=== PATIENT | male | born 1950 | race Caucasian/White ===

== ENCOUNTER → 2020-07-05 | Outpatient (CLI) | payer MEDICARE ==
[~2020-07-05] MED LIST: ADVAIR 100/501 E1 INH; ALDACTONE50 MG PO; AMARYL2 MG PO; ASPIR-LOW81 MG PO; ATIVAN0.5 MG PO; ATIVAN1 MG PO; B12-METHYL1000 MCG PO; BACTROBAN2% TP; CIPRO250 MG PO; COLACE100 MG PO; CYMBALTA20 M1 PO; DULCOLAX5 MG PO; FISH OIL 10001000 MG PO; FOLIC ACID1 MG PO; FOLIC ACID5 MG/ML PO; GABAPENTIN300 M1 PO; GABAPENTIN600 MG PO; GLIMEPIRIDE1 MG PO; LASIX20 MG PO; LEVAQUIN750 MG PO; MOM30 ML PO; MOTRIN600 MG PO; MULTIPLE VITAMI1 CAP PO; NICODERM21 MG/24 H TD; NORCO 325 MG-101 TAB PO; POTASSIUM CHLO10 MEQ PO; PRILOSEC OTC20 MG PO; SIMVASTATIN10 MG PO; VANCOCIN HCL1 GM IV; VICO75300 PO; VITAMIN D31250 MC1 PO; ZYRTEC10 M3 PO
== END | disposition home or self-care (01) ==
LOC: COVID19 00:21
PROVIDERS: ATTEND Surgery
DX: Z01.812 Encounter for preprocedural laboratory examination (principal); Z20.828 Contact with and (suspected) exposure to other viral communicable diseases

== ENCOUNTER → 2020-07-11 | Day surgery (SDC) | payer MEDICARE ==
[~2020-07-11] VITALS: Ht 177.8 cm; Wt 75.3 kg
[2020-07-11] VITALS (7 sets, daily range): BP systolic 116–129; BP diastolic 65–81
== END | disposition home or self-care (01) ==
LOC: SDC 07-08 14:00
PROVIDERS: ATTEND Surgery
DX: D48.5 Neoplasm of uncertain behavior of skin (principal); C44.619 Basal cell carcinoma of skin of left upper limb, including shoulder; F41.9 Anxiety disorder, unspecified; F32.9 Major depressive disorder, single episode, unspecified; J44.9 Chronic obstructive pulmonary disease, unspecified; E11.9 Type 2 diabetes mellitus without complications; K21.9 Gastro-esophageal reflux disease without esophagitis; I25.2 Old myocardial infarction; Z98.890 Other specified postprocedural states; Z88.2 Allergy status to sulfonamides; Z79.899 Other long term (current) drug therapy; Z88.8 Allergy status to other drugs, medicaments and biological substances; Z87.891 Personal history of nicotine dependence; Z83.3 Family history of diabetes mellitus

== ENCOUNTER → 2020-07-24 | Outpatient (CLI) | payer MEDICARE | END | disposition home or self-care (01) | LOC: US 13:23 | PROVIDERS: ATTEND Internal Medicine | DX: I73.9 Peripheral vascular disease, unspecified (principal) ==

== ENCOUNTER → 2020-12-10 | Outpatient (CLI) | payer MEDICARE ==
[~2020-12-10] MED LIST changes: +AMARYL4 MG PO; +CARVEDILOL6.25 MG PO; +CLEOCIN HCL300 MG PO; +FLONASE ALLERG9.9 ML NAS; +HYDROCODONE-AC1 EAC2 PO; +LISINOPRIL2.5 MG PO; +LORAZEPAM1 MG PO; +NICODERM CQ1 EAC2 TD; +OMEPRAZOLE MAGN20 MG PO; +PERCOCET 5-3251 EACH PO; +PLAVIX75 M1 PO; +SIMVASTATIN20 MG PO; +TRULICITY0.75 MG/0. SC; +ZYRTEC10 M2 PO
== END ==
LOC: WOUNDCARE 01:31
PROVIDERS: ATTEND Surgery
DX: I87.311 Chronic venous hypertension (idiopathic) with ulcer of right lower extremity (principal); L97.811 Non-pressure chronic ulcer of other part of right lower leg limited to breakdown of skin; E11.622 Type 2 diabetes mellitus with other skin ulcer; L97.311 Non-pressure chronic ulcer of right ankle limited to breakdown of skin; E11.621 Type 2 diabetes mellitus with foot ulcer; L97.511 Non-pressure chronic ulcer of other part of right foot limited to breakdown of skin; E11.51 Type 2 diabetes mellitus with diabetic peripheral angiopathy without gangrene; F32.9 Major depressive disorder, single episode, unspecified; F17.290 Nicotine dependence, other tobacco product, uncomplicated

== ENCOUNTER 2020-12-16 13:32 | Inpatient (IN) | payer MEDICARE ==
[~2020-12-16] VITALS: Ht 177.8 cm; Wt 67.6 kg
[~2020-12-16 13:32] MED LIST changes: -AMARYL4 MG PO; -CARVEDILOL6.25 MG PO; -CLEOCIN HCL300 MG PO; -FLONASE ALLERG9.9 ML NAS; -HYDROCODONE-AC1 EAC2 PO; -LISINOPRIL2.5 MG PO; -LORAZEPAM1 MG PO; -NICODERM CQ1 EAC2 TD; -OMEPRAZOLE MAGN20 MG PO; -PERCOCET 5-3251 EACH PO; -PLAVIX75 M1 PO; -SIMVASTATIN20 MG PO; -TRULICITY0.75 MG/0. SC; -ZYRTEC10 M2 PO
[2020-12-16 13:39] VITALS: BP 150/67
[2020-12-16 14:00] VITALS: BP 155/64
[2020-12-16 14:15] LABS: BASO % 0.5 % (0.0-1.0); EOS # 0.5 10*3/uL (0.0-0.4); EOS % 5.7 % (1.0-4.0); HEMATOCRIT 40.2 % (42.0-52.0); LYMPH # 1.7 10*3/uL (1.3-4.4); LYMPH % 20.3 % (27.0-41.0); MEAN CELL VOLUME 97.6 fl (80.0-94.0); MEAN CORPUSCULAR HGB 31.6 pg (27.0-31.0); MEAN CORPUSCULAR HGB CONC 32.3 g/dl (33.0-37.0); MEAN PLATELET VOLUME 9.7 fl (9.6-12.3); MONO # 0.7 10*3/uL (0.1-1.0); MONO % 7.7 % (3.0-9.0); NEUT # 5.5 10*3/uL (2.3-7.9); NEUT % 65.1 % (47.0-73.0); PLATELET COUNT AUTOMATED 233 10*3/uL (130-400); RED BLOOD COUNT 4.12 10*6/uL (4.50-5.90); RED CELL DISTRI WIDTH 13.2 % (0-14.5); WHITE BLOOD COUNT 8.4 10*3/uL (4.8-10.8)
[2020-12-16] MEDS ORDERED: PLAVIX75 M1 PO (14:26)
[2020-12-16] MEDS ORDERED: TRULICITY0.75 MG/0. SC (14:27)
[2020-12-16] MEDS ORDERED: CARVEDILOL6.25 MG PO (14:27)
[2020-12-16 14:30] LABS: ALBUMIN 3.4 gm/dl (3.1-4.5); ALKALINE PHOSPHATASE 78 U/L (45-117); BUN 19 mg/dl (7-24); CHLORIDE 106 mmol/L (98-107); CREATININE 0.93 mg/dL (0.70-1.30); POTASSIUM 4.4 mmol/L (3.5-5.1); SGOT/AST 7 IU/L (3-35); SGPT/ALT 15 U/L (12-78); SODIUM 138 mmol/L (136-145); TOTAL PROTEIN 6.8 gm/dL (6.4-8.2)
[2020-12-16 15:00] VITALS: BP 142/58
[2020-12-16 15:51] LABS: BILIRUBIN Negative (Negative); BLOOD 2+ (Negative); CLARITY Clear (Clear); COLOR Yellow (Yellow); GLUCOSE Negative (Negative); KETONE Negative (Negative); LEUKO ESTERASE Negative (Negative); NITRITE Negative (Negative); SPECIFIC GRAVITY <= 1.005 (1.001-1.030); UROBILINOGEN 0.2 E.U./dl (0.0-1.0)
[2020-12-16 16:00] VITALS: BP 136/64
[2020-12-16 20:00] VITALS: BP 118/54
[2020-12-16] MEDS ORDERED: FLONASE ALLERG9.9 ML NAS (21:32)
[2020-12-16] MEDS ORDERED: NICODERM CQ1 EAC2 TD (21:32)
[2020-12-16] MEDS ORDERED: HYDROCODONE-AC1 EAC2 PO (22:55)
[2020-12-16] MEDS ORDERED: ZYRTEC10 M2 PO (22:56)
[2020-12-16] MEDS ORDERED: LISINOPRIL2.5 MG PO (22:58)
[2020-12-16] MEDS ORDERED: LORAZEPAM1 MG PO (23:01)
[2020-12-16] MEDS ORDERED: AMARYL4 MG PO (23:02)
[2020-12-16] MEDS ORDERED: OMEPRAZOLE MAGN20 MG PO (23:03)
[2020-12-16] MEDS ORDERED: SIMVASTATIN20 MG PO (23:05)
[2020-12-17] VITALS: BP 100/50
[2020-12-17 08:00] VITALS: BP 100/50
[2020-12-17 16:00] VITALS: BP 138/57
[2020-12-17 20:00] VITALS: BP 126/64
[2020-12-18] VITALS: BP 109/43
[2020-12-18] MEDS ORDERED: CLEOCIN HCL300 MG PO ×2 (08:48)
[2021-02-13] MEDS ORDERED: PERCOCET 5-3251 EACH PO (12:59)
== END 2020-12-18 09:43 | disposition home or self-care (01) | DRG 301 ==
LOC: ED 13:32 → 4E 14:18 → EDHOLD 14:18 → 4E 14:43
PROVIDERS: Nurse Practitioner; ADMIT Internal Medicine; ATTEND Internal Medicine
DX: I73.9 Peripheral vascular disease, unspecified (principal); E11.51 Type 2 diabetes mellitus with diabetic peripheral angiopathy without gangrene; L97.519 Non-pressure chronic ulcer of other part of right foot with unspecified severity; E11.621 Type 2 diabetes mellitus with foot ulcer; I99.8 Other disorder of circulatory system; F41.1 Generalized anxiety disorder; G89.29 Other chronic pain; F17.210 Nicotine dependence, cigarettes, uncomplicated; Z88.2 Allergy status to sulfonamides

== ENCOUNTER → 2021-01-06 | Outpatient (CLI) | payer MEDICARE ==
[~2021-01-06] MED LIST changes: +AMARYL4 MG PO; +CARVEDILOL6.25 MG PO; +CLEOCIN HCL300 MG PO; +FLONASE ALLERG9.9 ML NAS; +HYDROCODONE-AC1 EAC2 PO; +LISINOPRIL2.5 MG PO; +LORAZEPAM1 MG PO; +NICODERM CQ1 EAC2 TD; +OMEPRAZOLE MAGN20 MG PO; +PERCOCET 5-3251 EACH PO; +PLAVIX75 M1 PO; +SIMVASTATIN20 MG PO; +TRULICITY0.75 MG/0. SC; +ZYRTEC10 M2 PO
== END ==
LOC: WOUNDCARE 11:40
PROVIDERS: ATTEND Nurse Practitioner
DX: I87.311 Chronic venous hypertension (idiopathic) with ulcer of right lower extremity (principal); L97.812 Non-pressure chronic ulcer of other part of right lower leg with fat layer exposed; E11.622 Type 2 diabetes mellitus with other skin ulcer; E11.51 Type 2 diabetes mellitus with diabetic peripheral angiopathy without gangrene; F32.9 Major depressive disorder, single episode, unspecified; F17.290 Nicotine dependence, other tobacco product, uncomplicated

== ENCOUNTER → 2021-01-21 | Outpatient (CLI) | payer MEDICARE | LOC: WOUNDCARE 05:51 | PROVIDERS: ATTEND Nurse Practitioner | DX: I87.311 Chronic venous hypertension (idiopathic) with ulcer of right lower extremity (principal); L97.812 Non-pressure chronic ulcer of other part of right lower leg with fat layer exposed; E11.622 Type 2 diabetes mellitus with other skin ulcer; E11.51 Type 2 diabetes mellitus with diabetic peripheral angiopathy without gangrene; F32.9 Major depressive disorder, single episode, unspecified; F17.290 Nicotine dependence, other tobacco product, uncomplicated ==

== ENCOUNTER → 2021-01-28 | Outpatient (CLI) | payer MEDICARE | LOC: WOUNDCARE 00:37 | PROVIDERS: ATTEND Surgery | DX: I87.311 Chronic venous hypertension (idiopathic) with ulcer of right lower extremity (principal); L97.812 Non-pressure chronic ulcer of other part of right lower leg with fat layer exposed; E11.622 Type 2 diabetes mellitus with other skin ulcer; E11.51 Type 2 diabetes mellitus with diabetic peripheral angiopathy without gangrene; F32.9 Major depressive disorder, single episode, unspecified; F17.290 Nicotine dependence, other tobacco product, uncomplicated ==

== ENCOUNTER → 2021-02-13 | Day surgery (SDC) | payer MEDICARE ==
[~2021-02-13] VITALS: Ht 177.8 cm; Wt 68.0 kg
[2021-02-13 10:45] VITALS: BP 114/72
[2021-02-13 12:52] VITALS: BP 113/80
[2021-02-13 13:07] VITALS: BP 117/58
[2021-02-13 13:21] VITALS: BP 114/60
== END | disposition home or self-care (01) ==
LOC: SDC 02-11 09:30
PROVIDERS: ATTEND Surgery
DX: I87.311 Chronic venous hypertension (idiopathic) with ulcer of right lower extremity (principal); L97.818 Non-pressure chronic ulcer of other part of right lower leg with other specified severity; R22.9 Localized swelling, mass and lump, unspecified; I73.9 Peripheral vascular disease, unspecified; K21.9 Gastro-esophageal reflux disease without esophagitis; E11.40 Type 2 diabetes mellitus with diabetic neuropathy, unspecified; I25.10 Atherosclerotic heart disease of native coronary artery without angina pectoris; I25.2 Old myocardial infarction; J44.9 Chronic obstructive pulmonary disease, unspecified; F17.210 Nicotine dependence, cigarettes, uncomplicated; F41.9 Anxiety disorder, unspecified; F32.9 Major depressive disorder, single episode, unspecified; Z79.899 Other long term (current) drug therapy

== ENCOUNTER → 2021-02-25 | Outpatient (CLI) | payer MEDICARE | LOC: WOUNDCARE 01:18 | PROVIDERS: ATTEND Nurse Practitioner | DX: I87.311 Chronic venous hypertension (idiopathic) with ulcer of right lower extremity (principal); E11.622 Type 2 diabetes mellitus with other skin ulcer; L97.812 Non-pressure chronic ulcer of other part of right lower leg with fat layer exposed; E11.51 Type 2 diabetes mellitus with diabetic peripheral angiopathy without gangrene; R22.41 Localized swelling, mass and lump, right lower limb; F32.9 Major depressive disorder, single episode, unspecified; F43.10 Post-traumatic stress disorder, unspecified; F17.210 Nicotine dependence, cigarettes, uncomplicated ==

== ENCOUNTER → 2021-03-04 | Outpatient (CLI) | payer MEDICARE | LOC: WOUNDCARE 00:34 | PROVIDERS: ATTEND Nurse Practitioner | DX: I87.311 Chronic venous hypertension (idiopathic) with ulcer of right lower extremity (principal); E11.622 Type 2 diabetes mellitus with other skin ulcer; L97.812 Non-pressure chronic ulcer of other part of right lower leg with fat layer exposed; E11.51 Type 2 diabetes mellitus with diabetic peripheral angiopathy without gangrene; R22.41 Localized swelling, mass and lump, right lower limb; F32.9 Major depressive disorder, single episode, unspecified; F43.10 Post-traumatic stress disorder, unspecified; F17.210 Nicotine dependence, cigarettes, uncomplicated ==

== ENCOUNTER → 2021-03-11 | Outpatient (CLI) | payer MEDICARE | LOC: WOUNDCARE 00:25 | PROVIDERS: ATTEND Nurse Practitioner | DX: I87.311 Chronic venous hypertension (idiopathic) with ulcer of right lower extremity (principal); E11.622 Type 2 diabetes mellitus with other skin ulcer; L97.812 Non-pressure chronic ulcer of other part of right lower leg with fat layer exposed; E11.51 Type 2 diabetes mellitus with diabetic peripheral angiopathy without gangrene; R22.41 Localized swelling, mass and lump, right lower limb; F32.9 Major depressive disorder, single episode, unspecified; F43.10 Post-traumatic stress disorder, unspecified; F17.210 Nicotine dependence, cigarettes, uncomplicated ==

== ENCOUNTER → 2021-03-20 | Outpatient (CLI) | payer MEDICARE | LOC: WOUNDCARE 03-18 03:51 | PROVIDERS: ATTEND Nurse Practitioner | DX: I87.311 Chronic venous hypertension (idiopathic) with ulcer of right lower extremity (principal); E11.622 Type 2 diabetes mellitus with other skin ulcer; L97.812 Non-pressure chronic ulcer of other part of right lower leg with fat layer exposed; E11.51 Type 2 diabetes mellitus with diabetic peripheral angiopathy without gangrene; R22.41 Localized swelling, mass and lump, right lower limb; F32.9 Major depressive disorder, single episode, unspecified; F43.10 Post-traumatic stress disorder, unspecified; F17.210 Nicotine dependence, cigarettes, uncomplicated ==

== ENCOUNTER → 2021-03-25 | Outpatient (CLI) | payer MEDICARE | LOC: WOUNDCARE 01:01 | PROVIDERS: ATTEND Nurse Practitioner | DX: I87.311 Chronic venous hypertension (idiopathic) with ulcer of right lower extremity (principal); E11.622 Type 2 diabetes mellitus with other skin ulcer; L97.812 Non-pressure chronic ulcer of other part of right lower leg with fat layer exposed; E11.51 Type 2 diabetes mellitus with diabetic peripheral angiopathy without gangrene; R22.41 Localized swelling, mass and lump, right lower limb; F32.9 Major depressive disorder, single episode, unspecified; F43.10 Post-traumatic stress disorder, unspecified; F17.210 Nicotine dependence, cigarettes, uncomplicated ==

== ENCOUNTER → 2021-04-01 | Outpatient (CLI) | payer MEDICARE | LOC: WOUNDCARE 01:21 | PROVIDERS: ATTEND Nurse Practitioner | DX: I87.311 Chronic venous hypertension (idiopathic) with ulcer of right lower extremity (principal); E11.622 Type 2 diabetes mellitus with other skin ulcer; L97.812 Non-pressure chronic ulcer of other part of right lower leg with fat layer exposed; E11.51 Type 2 diabetes mellitus with diabetic peripheral angiopathy without gangrene; R22.41 Localized swelling, mass and lump, right lower limb; F32.9 Major depressive disorder, single episode, unspecified; F43.10 Post-traumatic stress disorder, unspecified; F17.210 Nicotine dependence, cigarettes, uncomplicated ==

== ENCOUNTER → 2021-04-08 | Outpatient (CLI) | payer MEDICARE | LOC: WOUNDCARE 00:56 | PROVIDERS: ATTEND Surgery | DX: I87.311 Chronic venous hypertension (idiopathic) with ulcer of right lower extremity (principal); E11.622 Type 2 diabetes mellitus with other skin ulcer; L97.812 Non-pressure chronic ulcer of other part of right lower leg with fat layer exposed; E11.51 Type 2 diabetes mellitus with diabetic peripheral angiopathy without gangrene; R22.41 Localized swelling, mass and lump, right lower limb; F32.9 Major depressive disorder, single episode, unspecified; F43.10 Post-traumatic stress disorder, unspecified; F17.210 Nicotine dependence, cigarettes, uncomplicated ==

== ENCOUNTER → 2021-04-15 | Outpatient (CLI) | payer MEDICARE | LOC: WOUNDCARE 01:04 | PROVIDERS: ATTEND Nurse Practitioner | DX: I87.311 Chronic venous hypertension (idiopathic) with ulcer of right lower extremity (principal); E11.622 Type 2 diabetes mellitus with other skin ulcer; L97.812 Non-pressure chronic ulcer of other part of right lower leg with fat layer exposed; E11.51 Type 2 diabetes mellitus with diabetic peripheral angiopathy without gangrene; R22.41 Localized swelling, mass and lump, right lower limb; F32.9 Major depressive disorder, single episode, unspecified; F43.10 Post-traumatic stress disorder, unspecified; F17.210 Nicotine dependence, cigarettes, uncomplicated ==

== ENCOUNTER → 2021-04-22 | Outpatient (CLI) | payer MEDICARE | LOC: WOUNDCARE 01:45 | PROVIDERS: ATTEND Nurse Practitioner | DX: I87.311 Chronic venous hypertension (idiopathic) with ulcer of right lower extremity (principal); E11.622 Type 2 diabetes mellitus with other skin ulcer; L97.812 Non-pressure chronic ulcer of other part of right lower leg with fat layer exposed; E11.51 Type 2 diabetes mellitus with diabetic peripheral angiopathy without gangrene; R22.41 Localized swelling, mass and lump, right lower limb; F32.9 Major depressive disorder, single episode, unspecified; F43.10 Post-traumatic stress disorder, unspecified; F17.210 Nicotine dependence, cigarettes, uncomplicated ==

== ENCOUNTER → 2021-04-29 | Outpatient (CLI) | payer MEDICARE | LOC: WOUNDCARE 01:29 | PROVIDERS: ATTEND Surgery | DX: I87.311 Chronic venous hypertension (idiopathic) with ulcer of right lower extremity (principal); E11.622 Type 2 diabetes mellitus with other skin ulcer; L97.812 Non-pressure chronic ulcer of other part of right lower leg with fat layer exposed; E11.51 Type 2 diabetes mellitus with diabetic peripheral angiopathy without gangrene; R22.41 Localized swelling, mass and lump, right lower limb; F32.9 Major depressive disorder, single episode, unspecified; F43.10 Post-traumatic stress disorder, unspecified; F17.210 Nicotine dependence, cigarettes, uncomplicated ==

== ENCOUNTER → 2021-05-06 | Outpatient (CLI) | payer MEDICARE | LOC: WOUNDCARE 13:28 | PROVIDERS: ATTEND Nurse Practitioner | DX: I87.311 Chronic venous hypertension (idiopathic) with ulcer of right lower extremity (principal); E11.622 Type 2 diabetes mellitus with other skin ulcer; L97.812 Non-pressure chronic ulcer of other part of right lower leg with fat layer exposed; E11.51 Type 2 diabetes mellitus with diabetic peripheral angiopathy without gangrene; R22.41 Localized swelling, mass and lump, right lower limb; F32.9 Major depressive disorder, single episode, unspecified; F43.10 Post-traumatic stress disorder, unspecified; F17.210 Nicotine dependence, cigarettes, uncomplicated ==

== ENCOUNTER → 2021-05-13 | Outpatient (CLI) | payer MEDICARE | LOC: WOUNDCARE 01:20 | PROVIDERS: ATTEND Nurse Practitioner | DX: I87.311 Chronic venous hypertension (idiopathic) with ulcer of right lower extremity (principal); E11.622 Type 2 diabetes mellitus with other skin ulcer; L97.812 Non-pressure chronic ulcer of other part of right lower leg with fat layer exposed; E11.51 Type 2 diabetes mellitus with diabetic peripheral angiopathy without gangrene; R22.41 Localized swelling, mass and lump, right lower limb; F32.9 Major depressive disorder, single episode, unspecified; F43.10 Post-traumatic stress disorder, unspecified; F17.210 Nicotine dependence, cigarettes, uncomplicated ==

== ENCOUNTER → 2021-05-20 | Outpatient (CLI) | payer MEDICARE | LOC: WOUNDCARE 01:15 | PROVIDERS: ATTEND Surgery | DX: I87.311 Chronic venous hypertension (idiopathic) with ulcer of right lower extremity (principal); E11.622 Type 2 diabetes mellitus with other skin ulcer; L97.812 Non-pressure chronic ulcer of other part of right lower leg with fat layer exposed; E11.51 Type 2 diabetes mellitus with diabetic peripheral angiopathy without gangrene; R22.41 Localized swelling, mass and lump, right lower limb; F32.9 Major depressive disorder, single episode, unspecified; F43.10 Post-traumatic stress disorder, unspecified; F17.210 Nicotine dependence, cigarettes, uncomplicated ==

== ENCOUNTER → 2021-05-27 | Outpatient (CLI) | payer MEDICARE | LOC: WOUNDCARE 02:43 | PROVIDERS: ATTEND Surgery | DX: I87.311 Chronic venous hypertension (idiopathic) with ulcer of right lower extremity (principal); E11.622 Type 2 diabetes mellitus with other skin ulcer; L97.812 Non-pressure chronic ulcer of other part of right lower leg with fat layer exposed; E11.51 Type 2 diabetes mellitus with diabetic peripheral angiopathy without gangrene; R22.41 Localized swelling, mass and lump, right lower limb; F32.9 Major depressive disorder, single episode, unspecified; F43.10 Post-traumatic stress disorder, unspecified; F17.210 Nicotine dependence, cigarettes, uncomplicated ==

== ENCOUNTER → 2021-06-03 | Outpatient (CLI) | payer MEDICARE | LOC: WOUNDCARE 01:43 | PROVIDERS: ATTEND Surgery | DX: I87.311 Chronic venous hypertension (idiopathic) with ulcer of right lower extremity (principal); E11.622 Type 2 diabetes mellitus with other skin ulcer; L97.812 Non-pressure chronic ulcer of other part of right lower leg with fat layer exposed; E11.51 Type 2 diabetes mellitus with diabetic peripheral angiopathy without gangrene; R22.41 Localized swelling, mass and lump, right lower limb; F32.9 Major depressive disorder, single episode, unspecified; F43.10 Post-traumatic stress disorder, unspecified; F17.210 Nicotine dependence, cigarettes, uncomplicated ==

== ENCOUNTER → 2021-06-10 | Outpatient (CLI) | payer MEDICARE | LOC: WOUNDCARE 01:30 | PROVIDERS: ATTEND Surgery | DX: I87.311 Chronic venous hypertension (idiopathic) with ulcer of right lower extremity (principal); E11.622 Type 2 diabetes mellitus with other skin ulcer; L97.812 Non-pressure chronic ulcer of other part of right lower leg with fat layer exposed; E11.51 Type 2 diabetes mellitus with diabetic peripheral angiopathy without gangrene; R22.41 Localized swelling, mass and lump, right lower limb; F32.9 Major depressive disorder, single episode, unspecified; F43.10 Post-traumatic stress disorder, unspecified; F17.210 Nicotine dependence, cigarettes, uncomplicated ==

== ENCOUNTER → 2021-06-17 | Outpatient (CLI) | payer MEDICARE | LOC: WOUNDCARE 01:01 | PROVIDERS: ATTEND Surgery | DX: I87.311 Chronic venous hypertension (idiopathic) with ulcer of right lower extremity (principal); E11.622 Type 2 diabetes mellitus with other skin ulcer; L97.812 Non-pressure chronic ulcer of other part of right lower leg with fat layer exposed; E11.51 Type 2 diabetes mellitus with diabetic peripheral angiopathy without gangrene; R22.41 Localized swelling, mass and lump, right lower limb; F32.9 Major depressive disorder, single episode, unspecified; F43.10 Post-traumatic stress disorder, unspecified; F17.210 Nicotine dependence, cigarettes, uncomplicated ==

== ENCOUNTER → 2021-06-24 | Outpatient (CLI) | payer MEDICARE | LOC: WOUNDCARE 01:51 | PROVIDERS: ATTEND Surgery | DX: I87.311 Chronic venous hypertension (idiopathic) with ulcer of right lower extremity (principal); E11.622 Type 2 diabetes mellitus with other skin ulcer; L97.812 Non-pressure chronic ulcer of other part of right lower leg with fat layer exposed; E11.51 Type 2 diabetes mellitus with diabetic peripheral angiopathy without gangrene; R22.41 Localized swelling, mass and lump, right lower limb; F32.9 Major depressive disorder, single episode, unspecified; F43.10 Post-traumatic stress disorder, unspecified; F17.210 Nicotine dependence, cigarettes, uncomplicated ==

== ENCOUNTER → 2021-07-01 | Outpatient (CLI) | payer MEDICARE | LOC: WOUNDCARE 01:20 | PROVIDERS: ATTEND Surgery | DX: I87.311 Chronic venous hypertension (idiopathic) with ulcer of right lower extremity (principal); E11.622 Type 2 diabetes mellitus with other skin ulcer; L97.812 Non-pressure chronic ulcer of other part of right lower leg with fat layer exposed; E11.51 Type 2 diabetes mellitus with diabetic peripheral angiopathy without gangrene; R22.41 Localized swelling, mass and lump, right lower limb; F32.9 Major depressive disorder, single episode, unspecified; F43.10 Post-traumatic stress disorder, unspecified; F17.210 Nicotine dependence, cigarettes, uncomplicated ==

== ENCOUNTER → 2021-07-08 | Outpatient (CLI) | payer MEDICARE | LOC: WOUNDCARE 01:39 | PROVIDERS: ATTEND Nurse Practitioner | DX: I87.311 Chronic venous hypertension (idiopathic) with ulcer of right lower extremity (principal); E11.622 Type 2 diabetes mellitus with other skin ulcer; L97.812 Non-pressure chronic ulcer of other part of right lower leg with fat layer exposed; E11.51 Type 2 diabetes mellitus with diabetic peripheral angiopathy without gangrene; R22.41 Localized swelling, mass and lump, right lower limb; F32.9 Major depressive disorder, single episode, unspecified; F43.10 Post-traumatic stress disorder, unspecified; F17.210 Nicotine dependence, cigarettes, uncomplicated ==

== ENCOUNTER → 2021-07-15 | Outpatient (CLI) | payer MEDICARE | LOC: WOUNDCARE 00:38 | PROVIDERS: ATTEND Surgery | DX: I87.311 Chronic venous hypertension (idiopathic) with ulcer of right lower extremity (principal); E11.622 Type 2 diabetes mellitus with other skin ulcer; L97.812 Non-pressure chronic ulcer of other part of right lower leg with fat layer exposed; E11.51 Type 2 diabetes mellitus with diabetic peripheral angiopathy without gangrene; R22.41 Localized swelling, mass and lump, right lower limb; F32.9 Major depressive disorder, single episode, unspecified; F43.10 Post-traumatic stress disorder, unspecified; F17.210 Nicotine dependence, cigarettes, uncomplicated ==

== ENCOUNTER → 2021-07-22 | Outpatient (CLI) | payer MEDICARE | LOC: WOUNDCARE 03:24 | PROVIDERS: ATTEND Surgery | DX: I87.311 Chronic venous hypertension (idiopathic) with ulcer of right lower extremity (principal); E11.622 Type 2 diabetes mellitus with other skin ulcer; L97.812 Non-pressure chronic ulcer of other part of right lower leg with fat layer exposed; E11.51 Type 2 diabetes mellitus with diabetic peripheral angiopathy without gangrene; R22.41 Localized swelling, mass and lump, right lower limb; F32.9 Major depressive disorder, single episode, unspecified; F43.10 Post-traumatic stress disorder, unspecified; F17.290 Nicotine dependence, other tobacco product, uncomplicated ==

== ENCOUNTER → 2021-07-29 | Outpatient (CLI) | payer MEDICARE | LOC: WOUNDCARE 00:39 | PROVIDERS: ATTEND Surgery | DX: I87.311 Chronic venous hypertension (idiopathic) with ulcer of right lower extremity (principal); E11.622 Type 2 diabetes mellitus with other skin ulcer; L97.812 Non-pressure chronic ulcer of other part of right lower leg with fat layer exposed; E11.51 Type 2 diabetes mellitus with diabetic peripheral angiopathy without gangrene; R22.41 Localized swelling, mass and lump, right lower limb; F32.9 Major depressive disorder, single episode, unspecified; F43.10 Post-traumatic stress disorder, unspecified; F17.290 Nicotine dependence, other tobacco product, uncomplicated ==

== ENCOUNTER → 2021-08-05 | Outpatient (CLI) | payer MEDICARE | LOC: WOUNDCARE 01:05 | PROVIDERS: ATTEND Surgery | DX: I87.311 Chronic venous hypertension (idiopathic) with ulcer of right lower extremity (principal); E11.622 Type 2 diabetes mellitus with other skin ulcer; L97.812 Non-pressure chronic ulcer of other part of right lower leg with fat layer exposed; E11.51 Type 2 diabetes mellitus with diabetic peripheral angiopathy without gangrene; R22.41 Localized swelling, mass and lump, right lower limb; F32.9 Major depressive disorder, single episode, unspecified; F43.10 Post-traumatic stress disorder, unspecified; F17.290 Nicotine dependence, other tobacco product, uncomplicated ==

== ENCOUNTER → 2021-08-12 | Outpatient (CLI) | payer MEDICARE | LOC: WOUNDCARE 01:27 | PROVIDERS: ATTEND Surgery | DX: I87.311 Chronic venous hypertension (idiopathic) with ulcer of right lower extremity (principal); L97.812 Non-pressure chronic ulcer of other part of right lower leg with fat layer exposed; E11.622 Type 2 diabetes mellitus with other skin ulcer; E11.51 Type 2 diabetes mellitus with diabetic peripheral angiopathy without gangrene; R22.41 Localized swelling, mass and lump, right lower limb; F32.9 Major depressive disorder, single episode, unspecified; F43.10 Post-traumatic stress disorder, unspecified; F17.290 Nicotine dependence, other tobacco product, uncomplicated ==

== ENCOUNTER → 2021-08-19 | Outpatient (CLI) | payer MEDICARE | LOC: WOUNDCARE 01:11 | PROVIDERS: ATTEND Surgery | DX: I87.311 Chronic venous hypertension (idiopathic) with ulcer of right lower extremity (principal); L97.812 Non-pressure chronic ulcer of other part of right lower leg with fat layer exposed; E11.622 Type 2 diabetes mellitus with other skin ulcer; E11.51 Type 2 diabetes mellitus with diabetic peripheral angiopathy without gangrene; R22.41 Localized swelling, mass and lump, right lower limb; F32.9 Major depressive disorder, single episode, unspecified; F43.10 Post-traumatic stress disorder, unspecified; F17.290 Nicotine dependence, other tobacco product, uncomplicated ==

== ENCOUNTER → 2021-08-26 | Outpatient (CLI) | payer MEDICARE | LOC: WOUNDCARE 00:45 | PROVIDERS: ATTEND Surgery | DX: L97.311 Non-pressure chronic ulcer of right ankle limited to breakdown of skin (principal); L97.812 Non-pressure chronic ulcer of other part of right lower leg with fat layer exposed; E11.622 Type 2 diabetes mellitus with other skin ulcer; E11.51 Type 2 diabetes mellitus with diabetic peripheral angiopathy without gangrene; R22.41 Localized swelling, mass and lump, right lower limb; F32.9 Major depressive disorder, single episode, unspecified; F43.10 Post-traumatic stress disorder, unspecified; F17.290 Nicotine dependence, other tobacco product, uncomplicated ==

== ENCOUNTER → 2021-09-02 | Outpatient (CLI) | payer MEDICARE | LOC: WOUNDCARE 00:39 | PROVIDERS: ATTEND Surgery | DX: I87.311 Chronic venous hypertension (idiopathic) with ulcer of right lower extremity (principal); L97.812 Non-pressure chronic ulcer of other part of right lower leg with fat layer exposed; E11.622 Type 2 diabetes mellitus with other skin ulcer; E11.51 Type 2 diabetes mellitus with diabetic peripheral angiopathy without gangrene; R22.41 Localized swelling, mass and lump, right lower limb; I73.9 Peripheral vascular disease, unspecified; F32.9 Major depressive disorder, single episode, unspecified; F43.10 Post-traumatic stress disorder, unspecified; F17.290 Nicotine dependence, other tobacco product, uncomplicated ==

== ENCOUNTER → 2021-09-09 | Outpatient (CLI) | payer MEDICARE | LOC: WOUNDCARE 01:30 | PROVIDERS: ATTEND Surgery | DX: I87.311 Chronic venous hypertension (idiopathic) with ulcer of right lower extremity (principal); E11.622 Type 2 diabetes mellitus with other skin ulcer; L97.812 Non-pressure chronic ulcer of other part of right lower leg with fat layer exposed; I73.9 Peripheral vascular disease, unspecified; R22.41 Localized swelling, mass and lump, right lower limb; E11.51 Type 2 diabetes mellitus with diabetic peripheral angiopathy without gangrene; F32.9 Major depressive disorder, single episode, unspecified; F43.10 Post-traumatic stress disorder, unspecified; F17.290 Nicotine dependence, other tobacco product, uncomplicated ==

== ENCOUNTER → 2021-09-16 | Outpatient (CLI) | payer MEDICARE | LOC: WOUNDCARE 01:37 | PROVIDERS: ATTEND Surgery | DX: I87.311 Chronic venous hypertension (idiopathic) with ulcer of right lower extremity (principal); E11.622 Type 2 diabetes mellitus with other skin ulcer; L97.812 Non-pressure chronic ulcer of other part of right lower leg with fat layer exposed; E11.51 Type 2 diabetes mellitus with diabetic peripheral angiopathy without gangrene; R22.41 Localized swelling, mass and lump, right lower limb; F32.9 Major depressive disorder, single episode, unspecified; F43.10 Post-traumatic stress disorder, unspecified; F17.290 Nicotine dependence, other tobacco product, uncomplicated ==

== ENCOUNTER → 2021-09-23 | Outpatient (CLI) | payer MEDICARE | LOC: WOUNDCARE 01:50 | PROVIDERS: ATTEND Surgery | DX: I87.311 Chronic venous hypertension (idiopathic) with ulcer of right lower extremity (principal); E11.622 Type 2 diabetes mellitus with other skin ulcer; L97.812 Non-pressure chronic ulcer of other part of right lower leg with fat layer exposed; E11.51 Type 2 diabetes mellitus with diabetic peripheral angiopathy without gangrene; R22.41 Localized swelling, mass and lump, right lower limb; F32.9 Major depressive disorder, single episode, unspecified; F43.10 Post-traumatic stress disorder, unspecified; F17.290 Nicotine dependence, other tobacco product, uncomplicated ==

== ENCOUNTER → 2021-10-07 | Outpatient (CLI) | payer MEDICARE | LOC: WOUNDCARE 00:47 | PROVIDERS: ATTEND Surgery | DX: I87.311 Chronic venous hypertension (idiopathic) with ulcer of right lower extremity (principal); E11.622 Type 2 diabetes mellitus with other skin ulcer; L97.812 Non-pressure chronic ulcer of other part of right lower leg with fat layer exposed; E11.51 Type 2 diabetes mellitus with diabetic peripheral angiopathy without gangrene; R22.41 Localized swelling, mass and lump, right lower limb; F32.9 Major depressive disorder, single episode, unspecified; F43.10 Post-traumatic stress disorder, unspecified; F17.290 Nicotine dependence, other tobacco product, uncomplicated ==

== ENCOUNTER → 2021-10-14 | Outpatient (CLI) | payer MEDICARE | LOC: WOUNDCARE 00:29 | PROVIDERS: ATTEND Surgery | DX: I87.311 Chronic venous hypertension (idiopathic) with ulcer of right lower extremity (principal); E11.622 Type 2 diabetes mellitus with other skin ulcer; L97.812 Non-pressure chronic ulcer of other part of right lower leg with fat layer exposed; E11.51 Type 2 diabetes mellitus with diabetic peripheral angiopathy without gangrene; R22.41 Localized swelling, mass and lump, right lower limb; F32.9 Major depressive disorder, single episode, unspecified; F43.10 Post-traumatic stress disorder, unspecified; F17.290 Nicotine dependence, other tobacco product, uncomplicated ==

== ENCOUNTER → 2021-10-28 | Outpatient (CLI) | payer MEDICARE | LOC: WOUNDCARE 00:50 | PROVIDERS: ATTEND Surgery | DX: I87.311 Chronic venous hypertension (idiopathic) with ulcer of right lower extremity (principal); E11.622 Type 2 diabetes mellitus with other skin ulcer; L97.812 Non-pressure chronic ulcer of other part of right lower leg with fat layer exposed; E11.51 Type 2 diabetes mellitus with diabetic peripheral angiopathy without gangrene; R22.41 Localized swelling, mass and lump, right lower limb; F32.9 Major depressive disorder, single episode, unspecified; F43.10 Post-traumatic stress disorder, unspecified; F17.290 Nicotine dependence, other tobacco product, uncomplicated ==

== ENCOUNTER → 2021-11-04 | Outpatient (CLI) | payer MEDICARE | LOC: WOUNDCARE 00:35 | PROVIDERS: ATTEND Surgery | DX: I87.311 Chronic venous hypertension (idiopathic) with ulcer of right lower extremity (principal); E11.622 Type 2 diabetes mellitus with other skin ulcer; L97.812 Non-pressure chronic ulcer of other part of right lower leg with fat layer exposed; E11.51 Type 2 diabetes mellitus with diabetic peripheral angiopathy without gangrene; R22.41 Localized swelling, mass and lump, right lower limb; F32.9 Major depressive disorder, single episode, unspecified; F43.10 Post-traumatic stress disorder, unspecified; F17.290 Nicotine dependence, other tobacco product, uncomplicated ==

== ENCOUNTER → 2022-04-21 | Outpatient (CLI) | payer MEDICARE | END | disposition home or self-care (01) | LOC: WOUNDCARE 01:35 | PROVIDERS: ATTEND Surgery | DX: E11.622 Type 2 diabetes mellitus with other skin ulcer (principal); I87.311 Chronic venous hypertension (idiopathic) with ulcer of right lower extremity; L97.812 Non-pressure chronic ulcer of other part of right lower leg with fat layer exposed; E11.51 Type 2 diabetes mellitus with diabetic peripheral angiopathy without gangrene; R22.41 Localized swelling, mass and lump, right lower limb; F32.9 Major depressive disorder, single episode, unspecified; F43.10 Post-traumatic stress disorder, unspecified; F17.290 Nicotine dependence, other tobacco product, uncomplicated; Z89.521 Acquired absence of right knee ==

== ENCOUNTER → 2022-06-02 | Outpatient (CLI) | payer MEDICARE ==
[~2022-06-02] MED LIST changes: +ADV 100/50 INH; +AMITRIPTYLINE10 MG PO; +DULCOLAX STOOL100 M1 PO; -DULCOLAX5 MG PO; -SIMVASTATIN20 MG PO; +SIMVASTATIN40 MG PO; -VITAMIN D31250 MC1 PO; +VITAMIN D325 MCG PO
== END | disposition home or self-care (01) ==
LOC: WOUNDCARE 01:24
PROVIDERS: ATTEND Surgery
DX: E11.622 Type 2 diabetes mellitus with other skin ulcer (principal); I87.311 Chronic venous hypertension (idiopathic) with ulcer of right lower extremity; L97.812 Non-pressure chronic ulcer of other part of right lower leg with fat layer exposed; E11.51 Type 2 diabetes mellitus with diabetic peripheral angiopathy without gangrene; R22.41 Localized swelling, mass and lump, right lower limb; F17.290 Nicotine dependence, other tobacco product, uncomplicated; F43.10 Post-traumatic stress disorder, unspecified; F32.9 Major depressive disorder, single episode, unspecified; Z89.421 Acquired absence of other right toe(s); Z79.82 Long term (current) use of aspirin

== ENCOUNTER → 2022-06-09 | Outpatient (CLI) | payer MEDICARE | END | disposition home or self-care (01) | LOC: WOUNDCARE 02:14 | PROVIDERS: ATTEND Surgery | DX: I87.311 Chronic venous hypertension (idiopathic) with ulcer of right lower extremity (principal); E11.622 Type 2 diabetes mellitus with other skin ulcer; L97.812 Non-pressure chronic ulcer of other part of right lower leg with fat layer exposed; E11.51 Type 2 diabetes mellitus with diabetic peripheral angiopathy without gangrene; R22.41 Localized swelling, mass and lump, right lower limb; F17.290 Nicotine dependence, other tobacco product, uncomplicated; F32.9 Major depressive disorder, single episode, unspecified; Z89.421 Acquired absence of other right toe(s) ==

== ENCOUNTER → 2022-06-10 | Outpatient (CLI) | payer MEDICARE | END | disposition home or self-care (01) | LOC: US 14:41 | PROVIDERS: ATTEND Surgery | DX: I87.311 Chronic venous hypertension (idiopathic) with ulcer of right lower extremity (principal); I73.9 Peripheral vascular disease, unspecified; L97.818 Non-pressure chronic ulcer of other part of right lower leg with other specified severity ==

== ENCOUNTER 2022-06-22 12:12 | Emergency (ER) | payer MEDICARE ==
[~2022-06-22] VITALS: Ht 177.8 cm; Wt 73.6 kg
[2022-06-22 13:12] LABS: BASO % 0.5 % (0.0-1.0); EOS # 0.8 10*3/uL (0.0-0.4); EOS % 9.5 % (1.0-4.0); HEMATOCRIT 39.4 % (42.0-52.0); LYMPH # 1.9 10*3/uL (1.3-4.4); LYMPH % 22.1 % (27.0-41.0); MEAN CORPUSCULAR HGB 30.8 pg (27.0-31.0); MEAN CORPUSCULAR HGB CONC 32.7 g/dl (33.0-37.0); MEAN PLATELET VOLUME 9.8 fl (9.6-12.3); MONO # 0.8 10*3/uL (0.1-1.0); MONO % 9.5 % (3.0-9.0); NEUT # 4.9 10*3/uL (2.3-7.9); NEUT % 57.8 % (47.0-73.0); PLATELET COUNT AUTOMATED 195 10*3/uL (130-400); RED BLOOD COUNT 4.19 10*6/uL (4.50-5.90); RED CELL DISTRI WIDTH 12.6 % (0-14.5); WHITE BLOOD COUNT 8.5 10*3/uL (4.8-10.8)
[2022-06-22 13:31] LABS: ALKALINE PHOSPHATASE 89 U/L (45-117); BUN 16 mg/dl (7-24); CHLORIDE 103 mmol/L (98-107); CREATININE 0.96 mg/dL (0.70-1.30); POTASSIUM 4.5 mmol/L (3.5-5.1); SGOT/AST 11 IU/L (3-35); SGPT/ALT 15 U/L (12-78); SODIUM 135 mmol/L (136-145); TOTAL PROTEIN 6.6 gm/dL (6.4-8.2)
== END 2022-06-22 18:17 | disposition home or self-care (01) ==
LOC: ED 12:12
PROVIDERS: Physician Assistant
DX: T81.89XA Other complications of procedures, not elsewhere classified, initial encounter (principal); R60.0 Localized edema; Z88.2 Allergy status to sulfonamides; Z79.899 Other long term (current) drug therapy; Z79.82 Long term (current) use of aspirin; Z98.890 Other specified postprocedural states; Z95.5 Presence of coronary angioplasty implant and graft; Y83.8 Other surgical procedures as the cause of abnormal reaction of the patient, or of later complication, without mention of misadventure at the time of the procedure; Y92.89 Other specified places as the place of occurrence of the external cause

== ENCOUNTER → 2022-06-30 | Outpatient (CLI) | payer MEDICARE | END | disposition home or self-care (01) | LOC: WOUNDCARE 03:16 | PROVIDERS: ATTEND Surgery | DX: I87.311 Chronic venous hypertension (idiopathic) with ulcer of right lower extremity (principal); E11.622 Type 2 diabetes mellitus with other skin ulcer; L97.812 Non-pressure chronic ulcer of other part of right lower leg with fat layer exposed; E11.51 Type 2 diabetes mellitus with diabetic peripheral angiopathy without gangrene; R22.41 Localized swelling, mass and lump, right lower limb; F17.290 Nicotine dependence, other tobacco product, uncomplicated; F32.9 Major depressive disorder, single episode, unspecified; F43.10 Post-traumatic stress disorder, unspecified ==

== ENCOUNTER → 2022-07-14 | Outpatient (CLI) | payer MEDICARE | END | disposition home or self-care (01) | LOC: WOUNDCARE 03:54 | PROVIDERS: ATTEND Surgery | DX: E11.622 Type 2 diabetes mellitus with other skin ulcer (principal); I87.311 Chronic venous hypertension (idiopathic) with ulcer of right lower extremity; L97.812 Non-pressure chronic ulcer of other part of right lower leg with fat layer exposed; E11.51 Type 2 diabetes mellitus with diabetic peripheral angiopathy without gangrene; R22.41 Localized swelling, mass and lump, right lower limb; F17.290 Nicotine dependence, other tobacco product, uncomplicated; F32.9 Major depressive disorder, single episode, unspecified; F43.10 Post-traumatic stress disorder, unspecified ==

== ENCOUNTER → 2022-07-28 | Outpatient (CLI) | payer MEDICARE | END | disposition home or self-care (01) | LOC: WOUNDCARE 00:54 | PROVIDERS: ATTEND Nurse Practitioner Family | DX: E11.622 Type 2 diabetes mellitus with other skin ulcer (principal); I87.311 Chronic venous hypertension (idiopathic) with ulcer of right lower extremity; L97.812 Non-pressure chronic ulcer of other part of right lower leg with fat layer exposed; E11.621 Type 2 diabetes mellitus with foot ulcer; L97.521 Non-pressure chronic ulcer of other part of left foot limited to breakdown of skin; E11.51 Type 2 diabetes mellitus with diabetic peripheral angiopathy without gangrene; R22.41 Localized swelling, mass and lump, right lower limb; F17.290 Nicotine dependence, other tobacco product, uncomplicated; F32.9 Major depressive disorder, single episode, unspecified; F43.10 Post-traumatic stress disorder, unspecified ==

== ENCOUNTER → 2022-08-12 | Outpatient (CLI) | payer MEDICARE | END | disposition home or self-care (01) | LOC: WOUNDCARE 00:19 | PROVIDERS: ATTEND Nurse Practitioner Family | DX: E11.622 Type 2 diabetes mellitus with other skin ulcer (principal); I87.311 Chronic venous hypertension (idiopathic) with ulcer of right lower extremity; L97.812 Non-pressure chronic ulcer of other part of right lower leg with fat layer exposed; E11.621 Type 2 diabetes mellitus with foot ulcer; L97.521 Non-pressure chronic ulcer of other part of left foot limited to breakdown of skin; E11.51 Type 2 diabetes mellitus with diabetic peripheral angiopathy without gangrene; R22.41 Localized swelling, mass and lump, right lower limb; F43.10 Post-traumatic stress disorder, unspecified; F32.A Depression, unspecified; F17.290 Nicotine dependence, other tobacco product, uncomplicated; Z89.421 Acquired absence of other right toe(s) ==

== ENCOUNTER → 2022-08-20 | Day surgery (SDC) | payer MEDICARE ==
[2022-08-18 14:28] VITALS: BP 119/53
[~2022-08-20] VITALS: Ht 177.8 cm; Wt 70.3 kg
[~2022-08-20] MED LIST changes: +DULCOLAX10 M1 R; +METAMUCIL0.4 G1 PO
[2022-08-20 10:54] VITALS: BP 134/65
[2022-08-20 11:20] VITALS: BP 90/66
[2022-08-20 11:35] VITALS: BP 153/72
[2022-08-20 11:49] VITALS: BP 133/68
== END | disposition home or self-care (01) ==
LOC: SDC 08-18 14:00
PROVIDERS: ATTEND Surgery
DX: S91.301A Unspecified open wound, right foot, initial encounter (principal); I87.2 Venous insufficiency (chronic) (peripheral); I25.10 Atherosclerotic heart disease of native coronary artery without angina pectoris; I10 Essential (primary) hypertension; I25.2 Old myocardial infarction; F41.9 Anxiety disorder, unspecified; F32.9 Major depressive disorder, single episode, unspecified; J44.9 Chronic obstructive pulmonary disease, unspecified; F17.210 Nicotine dependence, cigarettes, uncomplicated; E78.00 Pure hypercholesterolemia, unspecified; Z88.8 Allergy status to other drugs, medicaments and biological substances; Z88.2 Allergy status to sulfonamides; X58.XXXA Exposure to other specified factors, initial encounter; Y93.89 Activity, other specified; Y92.89 Other specified places as the place of occurrence of the external cause; Y99.8 Other external cause status

== ENCOUNTER 2025-10-17 04:13 | Emergency (ER) | payer MEDICARE ==
[~2025-10-17] VITALS: Wt 65.8 kg
[2025-10-17] MEDS ORDERED: HYDROmorphONE Hydrochloride 0.5 MG/0.5 ML SYRINGE IM ONE (04:35)
[2025-10-17 05:26] LABS: BILIRUBIN Negative (Negative); BLOOD 2+ (Negative); CLARITY Clear (Clear); COLOR Yellow (Yellow); KETONE Trace (Negative); LEUKO ESTERASE Negative (Negative); NITRITE Negative (Negative); PH 5.0 (4.5-8.0); SPECIFIC GRAVITY >= 1.030 (1.001-1.030); UROBILINOGEN 0.2 E.U./dl (0.0-1.0)
[2025-10-17 05:28] LABS: ACT PARTIAL THROMBO TIME 28.0 SECONDS (20.0-32.1)
[2025-10-17 05:31] LABS: RBC 21-30 rbc/hpf (0-2); WBC 0-2 wbc/hpf (0-5)
[2025-10-17 05:36] LABS: BUN 25 mg/dl (9-23); SGPT/ALT 28 U/L (5-49)
[2025-10-17 05:57] LABS: BASO # 0.0 10*3/uL (0.0-0.1); BASO % 0.2 % (0.0-1.0); EOS # 0.0 10*3/uL (0.0-0.4); EOS % 0.4 % (1.0-4.0); MEAN CELL VOLUME 95.4 fl (80.0-94.0); MEAN CORPUSCULAR HGB 31.0 pg (27.0-31.0); MEAN PLATELET VOLUME 9.9 fl (9.6-12.3); MONO # 0.7 10*3/uL (0.1-1.0); MONO % 7.9 % (3.0-9.0); NEUT # 7.4 10*3/uL (2.3-7.9); NEUT % 81.2 % (47.0-73.0); NUCLEATED RED BLOOD CELL 0.0 % (0.0-0.0); NUCLEATED RED BLOOD CELL 0.0 10*3/uL (0.0-0.0); PLATELET COUNT AUTOMATED 144 10*3/uL (130-400); RED CELL DISTRI WIDTH 13.9 % (0-14.5)
[2025-10-17 06:17] LABS: VENOUS BLOOD GAS O2 SAT 97.3 % (60.0-85.0)
[2025-10-17] MEDS ORDERED: AZITHROMYCIN 250 ML IV SCH (10:00)
== END 2025-10-17 07:35 | disposition short-term general hospital (02) ==
LOC: ED 04:13
PROVIDERS: Internal Medicine
DX: S22.32XA Fracture of one rib, left side, initial encounter for closed fracture (principal); S22.31XA Fracture of one rib, right side, initial encounter for closed fracture; R79.89 Other specified abnormal findings of blood chemistry; D53.9 Nutritional anemia, unspecified; I25.2 Old myocardial infarction; I25.10 Atherosclerotic heart disease of native coronary artery without angina pectoris; K21.9 Gastro-esophageal reflux disease without esophagitis; F41.9 Anxiety disorder, unspecified; F32.A Depression, unspecified; J44.9 Chronic obstructive pulmonary disease, unspecified; F17.210 Nicotine dependence, cigarettes, uncomplicated; Z88.2 Allergy status to sulfonamides; Z20.822 Contact with and (suspected) exposure to COVID-19; W11.XXXA Fall on and from ladder, initial encounter; Y93.89 Activity, other specified; Y92.89 Other specified places as the place of occurrence of the external cause; Y99.8 Other external cause status